=== PATIENT | male | born 1975 | race Caucasian/White ===

== ENCOUNTER 2021-05-09 23:58 | Emergency (ER) | payer OTHER, SELFPAY ==
[2021-05-09 23:59] VITALS: BP 121/78; PULSE 80; RESP 17; TEMP 36.7; O2SAT 100; BMI 19.8
--- NOTE | 2021-05-10 00:29 | HMH.EDMCLR ---
ED Disposition Clinical Impression: Medical clearance for incarceration Disposition: Home, Self-Care Condition on Discharge: Good Instructions: DI for Drug or Alcohol Withdrawal, DI for Substance Use Disorder Additional Instructions: see pcp for follow up Referrals: Provider,Referral, [Primary Care Provider] - - Critical Care Critical Care Time: No Attestation: On 05/09/21, the high probability of a clinically significant, sudden or life threatening deterioration of the following system(s) required my full and direct attention, intervention and personal management. The time I documented below is in addition to time spent performing reported procedures but includes the following listed in this critical care notation. Medical Decision Making - Medical Records Medical records reviewed: Yes: I reviewed the patient's medical records. - Byron Inquiry Pt receiving controlled substance: No Vital Signs: 05/09/21 23:59 Temperature 98.1 F Temperature Source Oral Pulse Rate [Right] 80 Respiratory Rate 17 Blood Pressure [Right Arm] 121/78 Blood Pressure Mean [Right Arm] 92 Blood Pressure Source [Right Arm] Automatic Cuff 02 Sat by Pulse Oximetry 100 Oxygen Delivery Method Room Air - Lab Data Lab results reviewed: Yes: I reviewed the patient's lab results. Medical Decision Narrative: pt is medical stable at this time Medical Clearance HPI - General Chief complaint: Medical Clearance Stated complaint: Medical Clearance Time Seen by Provider: 05/10/21 00:29 Mode of Arrival: Ambulatory Source of Information: Patient, Medical Record Limitations: No Limitations Description of Symptoms (Recalled from ER Triage Doc. by RN): Pt brought in for medical clearance. He denies any complaints. No trauma or injury. He reports to using meth (snorting) and marijuana regualry. Last use was 05/09/21 @ 1830. - History of Present Illness HPI Narrative: no specific c/o MD complaint: medical clearance requested Onset (ago): hour(s) Place: home Traumatic Symptoms: denies traumatic injury Associated Symptoms: denies other symptoms Treatments Prior to Arrival: none Home medications: Previous Rx's Medication Instructions Recorded Hydrocortisone Acetate [Anusol HC 30 mg * TIDP PRN #10 supp.rect 08/30/17 30mg Supp] Allergies/Adverse reactions: Allergies Allergy/AdvReac Type Severity Reaction Status Date / Time From Tramadol HCl Allergy Mild I-ITCHING Uncoded 02/21/17 14:31 CODEINE Allergy Unknown I-RASH Uncoded 08/30/17 12:53 [facility] History - Hepatitis A Screen Drug use history?: Yes High risk sexual behaviors?: No History of sexually transmitted infection?: No Currently employed?: No Childcare worker?: No Do you have indoor plumbing?: Yes Do you have electricity?: Yes Attestation statement:: This patient has been screened for Hepatitis A risk factors. I have reviewed the patient's past medical history: Yes - Social History Smoking Status: Current every day smoker Tobacco Type: cigarettes # Packs/Day (cigarettes): 2 Alcohol Intake: never ROS Obtained: Yes All systems reviewed & no additional complaints - Constitutional Constitutional: Denies fever(s) - Eyes Eyes: Denies change in vision - ENT Ears, Nose, Mouth, and Throat: Denies sore throat - Cardiovascular Cardiovascular: Denies chest pain - Respiratory Respiratory: Denies shortness of breath - Gastrointestinal Gastrointestingal: Denies: abdominal pain - Genitourinary Male Genitourinary: Denies flank pain - Musculoskeletal Musculoskeletal: Denies joint pain - Integumentary/Breasts Skin/Breast: Denies rash - Neurologic Neurologic: Denies seizure-like activity Physical Exam - General General appearance: alert - Head Head exam: normocephalic - Eye Eye exam: Present: PERRL, EOMI - ENT ENT exam: Present: normal oropharynx - Neck Neck exam: Present: trachea midline - Respiratory Respiratory exa
[2021-05-10 00:50] VITALS: BP 124/73; PULSE 82; RESP 18; TEMP 36.7; O2SAT 100
== END 2021-05-10 00:53 | disposition home or self-care (01) ==
PROVIDERS: Emergency Provider Emergency Medicine
DX: Z03.89 Encounter for observation for other suspected diseases and conditions ruled out (principal); F17.210 Nicotine dependence, cigarettes, uncomplicated; Z79.899 Other long term (current) drug therapy; Z88.0 Allergy status to penicillin; Z88.5 Allergy status to narcotic agent; Z88.6 Allergy status to analgesic agent
CPT/HCPCS: 99282

== ENCOUNTER 2025-02-09 19:18 | Emergency (ER) | payer SELFPAY ==
--- OUTSIDE RECORDS SUMMARY | 2025-02-09 19:24 | XMS_ITS | Clinical Summary ---
Author Organization [facility] Address [address] [id number] Care Team Providers Care Dental Assisting Instructor Name Role Phone Pcp, No Primary Care Provider Unavailabl e Allergies Active Allergy Reactions Criticality Noted Date Comments Tramadol Hives Medium 10/26/2024 Social History Tobacco Use Types Packs/Day Years Used Date Smoking Tobacco: Never Assessed Sex and Gender Information Value Date Recorded Sex Assigned at Not on file Legal Sex Male 8:14 PM EDT Gender Identity Not on file Sexual Orientation Not on file Last Filed Vital Signs Vital Sign Reading Time Taken Comments Blood Pressure 116/70 10/26/2024 8:04 PM EDT Pulse 70 10/26/2024 8:04 PM EDT Temperature 36.7 C (98 F) 10/26/2024 8:04 PM EDT Respiratory Rate 16 10/26/2024 8:04 PM EDT Oxygen Saturation 100% 10/26/2024 8:04 PM EDT Inhaled Oxygen Concentration - - Weight 71.7 kg (158 lb) 10/26/2024 2:57 PM EDT Height - - Body Mass Index - - Plan of Treatment Health Maintenance Due Date Last Done Comments [facility]-Depression Screening 1976 [facility]-Infant/Child/Adol SDOH Screenings 1976 [facility]- SDOH Screenings 1994 [facility]-Adult SDOH Screenings 1994 [facility]-DTaP,Tdap,and Td Vaccine s (1 - Tdap) 05/21/1995 [facility]-Hepatitis B Vaccines (1 of 3 - 19+ 3-dose series) 05/21/1995 CT Colonography 2021 Colonoscopy 2021 FIT-DNA 2021 FIT 2021 FOBT 2021 Sigmoidoscopy 2021 [facility]-Colorectal Cancer Screening 2021 [id number] Vaccine (2 - 20 25- season) 2024 06/09/2020 [facility]-Influenza Vaccine (#1) 2024 [facility]-Zoster Vaccines (1 of 2) 2026 [facility]-Hepatitis A Vaccines Aged Out 04/10/2018 No longer eligible based on patient's age to complete this topic [facility]-HIV Screening Completed 10/26/2024 [facility]-Hepatitis C Screening Completed 10/26/2024 HPV Vaccines Aged Out No longer eligi ble based on patient's age to complete this topic [facility]-HIB Vaccines Aged Out No longer e ligible based on patient's age to complete this topic [facility]-IPV Vaccines Aged Out No longer e ligible based on patient's age to complete this topic [facility]-Pneumococcal Vaccine: Pediatrics (0 to 5 Years) and At-Risk Patients (6 to 49 Years) Aged Out No long er eligible based on patient's age to complete this topic [facility]-Rotavirus Vaccines Aged Out No lo nger eligible based on patient's age to complete this topic Procedures Procedure Name Priority Date/Time Associated Diagnosis Comments HEPATITIS C ANTIBODY - ED W/REFLEX TO HCV QUANT PCR STAT 10/26/2024 3:43 PM EDT ED HIV 1/2 ANTIBODY/ANTIGEN SCREEN WITH REFLEX TO HIV I/II DIFFERENTIATION STAT 10/26/2024 3:43 PM EDT from Last 3 Months or Most Recently Relevant to Health Maintenance Results * ED HIV 1/2 Antibody/Antigen Screen w/Reflex to HIV 1/2 Differentiation (10/26/2024 3:43 PM EDT) HIV 1 & 2 Antibody/Antigen Screen Non Reactive Non Reactive 10/26/2024 4:34 PM EDT [facility] Comment:Screening for HIV 1 & 2 antibodies, and P24 antigen is NONREACTIVE. No confirmatory testing is required. Blood Venous blood specimen / Unknown Venipuncture / Unknown 10/26/2024 3:43 PM EDT 10/26/2024 3:55 PM EDT Gala Thapa MD LAB BLOOD ORDERABLES Final Re sult Performing Organization Address City/[facility]/ZIP Co de Phone Number [facility] [address] [place] [address] * Hepatitis C Antibody - ED (10/26/2024 3:43 PM EDT) Hepatitis C Antibody Negative Negative 10/26/2024 4:39 PM EDT [facility] Blood Venous blood specimen / Unknown Venipuncture / Unknown 10/26/2024 3:43 PM EDT 10/26/2024 3:56 PM EDT us Gala Thapa MD LAB BLOOD ORDERABLES Final Re sult Performing Organization Address City/[facility] Co de Phone Number [facility] [address] [place] [address] from Last 3 Months or Most Recently Relevant to Health Maintenance Care Teams Dental Assisting Instructor Relationship Specialty Start Date End Date Pcp, No [address] [place] [address] PCP - General Family Medicine 10/26/24
[2025-02-09 19:28] VITALS: BP 129/75; PULSE 81; RESP 16; TEMP 36.5; O2SAT 97; BMI 21.1
[2025-02-09 19:34] VITALS: BP 121/78; PULSE 71; RESP 18; TEMP 37.1; O2SAT 98
--- NOTE | 2025-02-09 19:39 | ED_ITS ---
Discharge Plan Disposition Chief Complaint: Medical Clearance Prescriptions Prescriptions: No Action No Known Home Medications Referrals Follow up/Referrals: Provider,Referral, [Primary Care Provider, Medical] - See instructions Print Language Print Language: Syriac Discharge ED Provider: Darline Benson Adult HPI General Chief complaint: Medical Clearance Stated complaint: Medical Clearance Time Seen by Provider: 02/09/25 19:38 Mode of Arrival: Ambulatory Source of Information: Law Enforcement Description of Symptoms (Recalled from ER Triage Doc. by RN): PT is here for medical clearance Related Data Home Medications ?Medication ?Instructions ?Recorded ?Confirmed No Known Home Medications 05/10/21 03/0 09/24 Allergies Allergy/AdvReac Type Severity Reaction Status Date / Time Penicillins Allergy Intermediate Hives Verified 05/10/21 00:29 CODEINE Allergy Intermediate I-RASH Uncoded 05/10/21 00:29 From Tramadol HCl Allergy Mild I-ITCHING Uncoded 02/21/17 14:31 [facility] Disclaimer: The information contained in this section may have been updated after the patient was seen, as this information can be updated by other users. Social History Smoking Status: Current every day smoker tobacco type: cigarettes packs per day: 2 alcohol intake: never Travel in the last 8 weeks?: None Have you lived/traveled outside [place] in past 30 days?: No Contact w/someone who lives/traveled outside US past 30 days?: No Exposure to someone with infectious disease in past 14 days?: No Do you have a fever (greater than 100.4 F or 38 C)?: No Have you tested positive for COVID-19?: No Exposed to someone with COVID-19 in past 14 days?: No Do you have a sore throat?: No Do you have a cough?: No Do you have any weakness?: No Do you have any diarrhea?: No Are you experiencing any unusual bleeding?: No Do you have any muscle aches/pain?: No Do you have any abdominal pain?: No Are you experiencing loss of taste or smell?: No Other Medical History Have you received the Flu Vaccine for this season: No Have you received the Pneumonia Vaccine: No Medical Decision Making Medical Records Screening: Per USPSTF and CDC recommendations, given the prevalence of disease in our region, it is our hospital?s policy to screen for HIV and viral Hepatitis for all patients aged 18 and over and those with ongoing risk factors. Vital Signs: 02/09/25 19:28 Temperature 97.7 F Temperature Source Oral Pulse Rate [Right] 81 Respiratory Rate 16 Blood Pressure [Right Arm] 129/75 Blood Pressure Mean [Right Arm] 93 Blood Pressure Source [Right Arm] Automatic Cuff Blood Pressure Position [Right Arm] Sitting 02 Sat by Pulse Oximetry 97 Oxygen Delivery Method Room Air
--- NOTE | 2025-02-09 19:39 | ED_ITS ---
Discharge Plan Disposition Patient Disposition: Home, Self-Care Condition: Good Prescriptions Prescriptions: No Action No Known Home Medications Referrals Follow up/Referrals: Provider,Referral, [Primary Care Provider, Medical] - See instructions Clinical Impressions Clinical Impression: Medical clearance for incarceration Print Language Print Language: Bulgarian Discharge ED Provider: Darline Benson Adult HPI General Chief complaint: Medical Clearance Stated complaint: Medical Clearance Time Seen by Provider: 02/09/25 19:38 Mode of Arrival: Ambulatory Source of Information: Law Enforcement Description of Symptoms (Recalled from ER Triage Doc. by RN): PT is here for medical clearance History of Present Illness HPI narrative: 49-year-old male presenting the emergency department in police custody for medical clearance. Clearance required as patient reports that he smoked methamphetamine this morning. He denies any other ingestions throughout the day. No home medications. Denies any past medical history. Denies any injury. His only acute complaint is watery eyes. Related Data Home Medications ?Medication ?Instructions ?Recorded ?Confirmed No Known Home Medications 05/10/21 03/0 09/24 Allergies Allergy/AdvReac Type Severity Reaction Status Date / Time Penicillins Allergy Intermediate Hives Verified 05/10/21 00:29 CODEINE Allergy Intermediate I-RASH Uncoded 05/10/21 00:29 From Tramadol HCl Allergy Mild I-ITCHING Uncoded 02/21/17 14:31 [facility] Disclaimer: The information contained in this section may have been updated after the patient was seen, as this information can be updated by other users. Social History Smoking Status: Current every day smoker tobacco type: cigarettes packs per day: 2 alcohol intake: never current occupational status: other Travel in the last 8 weeks?: None Other Medical History Have you received the Flu Vaccine for this season: No Have you received the Pneumonia Vaccine: No ROS Obtained: Yes All systems reviewed & no additional complaints except as documented Physical Exam General General appearance: alert and in no apparent distress Head Head exam: atraumatic Eye Eye exam: Present normal appearance, PERRL and EOMI ENT ENT exam: Present mucous membranes moist Neck Neck exam: Present normal inspection and full ROM; Absent tenderness Chest Chest inspection: Present symmetric chest wall rise; Absent tenderness Respiratory Respiratory exam: Absent respiratory distress, wheezes or accessory muscle use Cardiovascular Cardiovascular exam: Present regular rate and normal rhythm Abdominal Exam Abdominal exam: Present soft; Absent tenderness or guarding Extremities Exam Extremities exam: Present full ROM; Absent tenderness Neurological Exam Neurological exam: Present alert and oriented X3 Psychiatric Psychiatric exam: Present normal affect Skin Skin exam: Present warm and dry Medical Decision Making Medical Records Screening: Per USPSTF and CDC recommendations, given the prevalence of disease in our region, it is our hospital?s policy to screen for HIV and viral Hepatitis for all patients aged 18 and over and those with ongoing risk factors. Byron Inquiry Pt receiving controlled substance: No Byron was queried for this patient: No Vital Signs: 02/09/25 19:28 Temperature 97.7 F Temperature Source Oral Pulse Rate [Right] 81 Respiratory Rate 16 Blood Pressure [Right Arm] 129/75 Blood Pressure Mean [Right Arm] 93 Blood Pressure Source [Right Arm] Automatic Cuff Blood Pressure Position [Right Arm] Sitting 02 Sat by Pulse Oximetry 97 Oxygen Delivery Method Room Air Medical Decision Narrative: In summary, this is a 49y/o male presenting the emergency department for medical clearance for incarceration. Patient was brought to the emergency department as whipped topping mixer refused patient considering he smoked methamphetamine this morning. He denies any other ingestions. He has no acute complaints. He is hemodynamically stable, awake, alert, and oriented. Patient does not require any imaging or lab work for medical clearance. He was deemed medically clear and discharged in police custody. Critical Care Critical Care Time Critical Care Time: No
[2025-02-09 19:44] VITALS: BP 118/78; PULSE 74; RESP 18; TEMP 36.6; O2SAT 98
== END 2025-02-09 19:46 | disposition home or self-care (01) ==
PROVIDERS: Emergency Provider Student in an Organized Health Care Education/Training Program
DX: Z00.8 Encounter for other general examination (principal)
CPT/HCPCS: 99282